=== PATIENT | male | born 1985 | race Hispanic/Latino ===

== ENCOUNTER 2021-06-10 14:29 | Inpatient (IN) | payer SELFPAY ==
[2021-06-10] MEDS ORDERED: Boostrix 0.5 ML (Tdap) VIAL ONE (15:03)
[2021-06-10] MEDS ORDERED: Ketorolac Tromethamine 30 MG/ML VIAL ONE (15:06)
[2021-06-10 15:32] LABS: Hemoglobin 15.8 g/dL (14.0-18.0); Mean Corpuscular HGB CONC 34.7 g/dL (32.0-36.0); Mean Corpuscular Hemoglobin 33.2 pg (27.0-31.0); Mean Corpuscular Volume 95.6 fL (78.0-98.0); Mean Platelet Volume 6.7 fL (7.4-10.4); Platelet Count 327 thou/uL (130-400); RBC Distribution Width 11.5 % (11.5-14.5); Red Blood Cell (RBC) Count 4.76 mill/uL (4.70-6.10); White Blood Cell (WBC) Count 16.9 thou/uL (4.8-10.8)
[2021-06-10 15:49] LABS: Band 8 % (5-11); Lymphocytes 11 % (21-51); MDiff Complete? YES; Monocytes 19 % (0-10); Neutrophil 59 % (42-75); Platelet Morphology Comment Appears Adequate; RBC Morphology Normal; Reactive Lymphocytes 3 % (0-10)
[2021-06-10 15:51] LABS: ALT (SGPT) 14 U/L (8-55); AST (SGOT) 14 U/L (5-34); Albumin 3.6 g/dL (3.5-5.0); Alkaline Phosphatase 80 U/L (40-110); Anion Gap 14 mmol/L (10-20); BUN (Urea Nitrogen) 8 mg/dL (8.9-20.6); Bilirubin, Total 0.5 mg/dL (0.2-1.2); Calc. Creatinine Clearance 0 mL/min (70-130); Carbon Dioxide 22 mmol/L (22-29); Chloride 103 mmol/L (98-107); Globulin 3.8 g/dL (2.4-3.5); Glucose 94 mg/dL (70-105); Potassium 3.6 mmol/L (3.5-5.1); Protein, Total 7.4 g/dL (6.0-8.3); Sodium 135 mmol/L (136-145)
[2021-06-10] MEDS ORDERED: Clindamycin/D5W 900 mg/50 ml Premix Bag ONE (16:56)
[2021-06-10] MEDS ORDERED: Bacitracin 1 PK ONE (17:13)
[2021-06-10] MEDS ORDERED: Morphine 4 MG/ML VIAL ONE (18:38)
[2021-06-10] MEDS ORDERED: Acetaminophen 325 MG TAB PO PRN (20:51)
[2021-06-10] MEDS ORDERED: Bisacodyl 5 MG TAB PO PRN (20:52)
[2021-06-10] MEDS ORDERED: Vancomycin 1 GM in Premix Bag 1 BAG IVPB SCH (21:00)
[2021-06-10] MEDS: Famotidine 20 MG TAB PO SCH (22:11)
[2021-06-10] MEDS: HYDROcodone/Acetaminophen 7.5/325 mg Tablet PO PRN (22:11)
[2021-06-10] MEDS: Sodium Chloride 0.9% 1,000 ML IV SCH (22:15)
[2021-06-10 22:44] VITALS: BMI 34.0
[2021-06-11] MEDS: VANCOMYCIN 1.75 GM/350 ML BAG 1.75 GM in Premix Bag 1 BAG IVPB SCH ×3 (00:11→16:11)
[2021-06-11] MEDS: Morphine 2 MG/ML VIAL SLOW IVP PRN (04:27)
[2021-06-11] MEDS: HYDROcodone/Acetaminophen 7.5/325 mg Tablet PO PRN ×3 (06:35→21:30)
[2021-06-11 07:14] LABS: Mean Corpuscular HGB CONC 33.1 g/dL (32.0-36.0); Mean Corpuscular Hemoglobin 31.8 pg (27.0-31.0); Mean Corpuscular Volume 96.2 fL (78.0-98.0); Mean Platelet Volume 6.8 fL (7.4-10.4); Platelet Count 345 thou/uL (130-400); RBC Distribution Width 11.4 % (11.5-14.5); White Blood Cell (WBC) Count 11.9 thou/uL (4.8-10.8)
[2021-06-11 07:19] LABS: Anion Gap 8 mmol/L (10-20); BUN (Urea Nitrogen) 8 mg/dL (8.9-20.6); Calc. Creatinine Clearance 251 mL/min (70-130); Calcium 8.6 mg/dL (7.8-10.44); Carbon Dioxide 24 mmol/L (22-29); Chloride 108 mmol/L (98-107); Glucose 94 mg/dL (70-105); Potassium 3.7 mmol/L (3.5-5.1); Sodium 136 mmol/L (136-145)
[2021-06-11] MEDS: Famotidine 20 MG TAB PO SCH ×2 (08:56→21:31)
[2021-06-11] MEDS: Nicotine 21 MG PATCH TD SCH (08:56)
[2021-06-11] MEDS: Zinc Sulfate 220 MG CAP PO SCH (08:56)
[2021-06-11] MEDS: Enoxaparin Sodium 40 MG/0.4 ML SYRINGE SC SCH ×2 (08:57→09:02)
[2021-06-11 10:37] LABS: Band 25 % (5-11); Eosinophils 1 % (0-10); Lymphocytes 16 % (21-51); MDiff Complete? YES; Metamyelocyte 3 % (0-0); Monocytes 5 % (0-10); Neutrophil 43 % (42-75); Reactive Lymphocytes 6 % (0-10); Reflex for Review?? YES
[2021-06-11] MEDS ORDERED: HYDROcodone/Acetaminophen 10/325 mg Tablet PO PRN (15:49)
[2021-06-11] MEDS ORDERED: Ketorolac Tromethamine 30 MG/ML VIAL IVP PRN (15:50)
[2021-06-11] MEDS ORDERED: CEFAZOLIN 1 GM in Sodium Chloride 0.9% 100 ML IVPB SCH (16:00)
[2021-06-11] MEDS: Sodium Chloride 0.9% 1,000 ML IV SCH (17:07)
[2021-06-11 18:47] LABS: SARS-CoV-2 PCR by NAA Not Detected (NotDetected)
[2021-06-11 23:19] LABS: Vancomycin, Trough 17.9 ug/mL
[2021-06-11] MEDS: ceFAZolin 1 GM/D5W 1 GM in Premix Bag 1 BAG IVPB SCH (23:31)
[2021-06-12] MEDS: VANCOMYCIN 1.75 GM/350 ML BAG 1.75 GM in Premix Bag 1 BAG IVPB SCH ×3 (00:02→17:24)
[2021-06-12] MEDS: HYDROcodone/Acetaminophen 7.5/325 mg Tablet PO PRN ×2 (03:05→07:03)
[2021-06-12] MEDS: Sodium Chloride 0.9% 1,000 ML IV SCH (06:22)
[2021-06-12 06:35] LABS: Hemoglobin 14.6 g/dL (14.0-18.0); Mean Corpuscular HGB CONC 33.7 g/dL (32.0-36.0); Mean Corpuscular Hemoglobin 32.4 pg (27.0-31.0); Mean Corpuscular Volume 96.1 fL (78.0-98.0); Mean Platelet Volume 6.6 fL (7.4-10.4); Platelet Count 348 thou/uL (130-400); RBC Distribution Width 11.3 % (11.5-14.5); Red Blood Cell (RBC) Count 4.51 mill/uL (4.70-6.10); White Blood Cell (WBC) Count 7.9 thou/uL (4.8-10.8)
[2021-06-12] MEDS: ceFAZolin 1 GM/D5W 1 GM in Premix Bag 1 BAG IVPB SCH ×2 (08:55→16:05)
[2021-06-12] MEDS: Enoxaparin Sodium 40 MG/0.4 ML SYRINGE SC SCH (09:01)
[2021-06-12] MEDS: Famotidine 20 MG TAB PO SCH (09:01)
[2021-06-12] MEDS: Zinc Sulfate 220 MG CAP PO SCH (09:01)
[2021-06-12] MEDS: Nicotine 21 MG PATCH TD SCH (09:02)
[2021-06-12 12:12] VITALS: BP 144/85; TEMP 98.1
[2021-06-12] MEDS: Morphine 2 MG/ML VIAL SLOW IVP PRN (13:59)
== END 2021-06-12 17:56 | disposition home or self-care (01) | DRG 300 ==
LOC: ERS 14:29 → EDBD 14:29 → T4-A 18:20 → OBSVTOIN 06-12 11:32
PROVIDERS: ADMIT Family Medicine; ATTEND Internal Medicine
DX: I96 Gangrene, not elsewhere classified (principal); L03.115 Cellulitis of right lower limb; L89.899 Pressure ulcer of other site, unspecified stage; S80.921A Unspecified superficial injury of right lower leg, initial encounter; Z20.822 Contact with and (suspected) exposure to COVID-19; F17.210 Nicotine dependence, cigarettes, uncomplicated; X58.XXXA Exposure to other specified factors, initial encounter; Z82.49 Family history of ischemic heart disease and other diseases of the circulatory system
CPT/HCPCS: 36415; 80048; 80053; 80202; 83605; 85025; 85027; 85060; 87040; 87070; 87077; 87186; 87205; 90471; 90715; 96365; 96375; 96376; G0378; J0690; J1650; J1885; J2270; J3370; J3490; J7050; U0003; U0005